=== PATIENT | male | born 1955 | race Caucasian/White ===

== ENCOUNTER 2016-08-03 11:23 | Emergency (ER) | payer BC ==
[~2016-08-03] VITALS: Ht 180.3 cm; Wt 113.8 kg
[~2016-08-03 11:23] MED LIST: PREDNISONE20 MG PO; VENTOLIN HFA18 GM IH
[2016-08-03] MEDS ORDERED: LAMOTRIGINE150 MG PO (11:53)
[2016-08-03] MEDS ORDERED: AMOXICILLIN875 MG PO (11:54)
[2016-08-03] MEDS ORDERED: BREO ELLIPTA I1 EACH IH (11:55)
[2016-08-03 13:15] LABS: CHLORIDE 106 mEq/L (99-109); POTASSIUM 4.1 mEq/L (3.7-5.4); SODIUM 139 mEq/L (136-147)
[2016-08-03 13:17] LABS: GLUCOSE 98 mg/dL (70-99)
[2016-08-03 13:18] LABS: ANION GAP 9 MEQ/L (2-14)
[2016-08-03 13:19] LABS: TOTAL BILIRUBIN 0.3 mg/dL (0.0-1.0)
[2016-08-03 13:20] LABS: ALKALINE PHOSPHATASE 80 IU/L (3-129)
[2016-08-03 13:21] LABS: GFR ESTIMATE (CALCULATED) > 59 mL/min/
[2016-08-03 13:22] LABS: UREA NITROGEN (BUN) 13 mg/dL (9-23)
[2016-08-03 13:26] LABS: EOSINOPHIL (%) 0 % (0-5); HEMATOCRIT 48.5 % (38.0-50.0); IMMATURE GRANULOCYTE (%) 0.2 % (0.0-0.7); INSTRUMENT ABS NEUTROPHIL CT 2.9 K/uL; LYMPHOCYTE COUNT 0.7 K/uL (1.0-2.8); MCH 29.4 PG (29.0-34.0); MCHC 32.6 G/DL (30.0-36.0); MCV 90.3 FL (86-99); MONOCYTE (%) 15.3 % (3-12); MONOCYTE COUNT 0.6 K/uL (0-0.8); NEUTROPHIL (%) 68.5 % (45-76); NEUTROPHIL COUNT 2.9 K/uL (1.8-6.4); PLATELET COUNT 183 K/uL (156-360); RBC DIS.WIDTH-CV 13.7 % (11.8-14.6); RBC DIS.WIDTH-SD 46.1 % (39-53); RED BLOOD COUNT 5.37 M/uL (4.00-5.50); WHITE BLOOD COUNT 4.2 K/uL (4.1-10.2)
[2016-08-03 13:38] LABS: TROP-I INTERPRETATION NEGATIVE; TROPONIN-I < 0.01 ng/mL (0.0-0.30)
[2016-08-03 16:03] LABS: D-DIMER ELISA 0.32 mg/L FEU (< 0.57)
[2016-08-03 16:14] LABS: TROP-I INTERPRETATION NEGATIVE; TROPONIN-I < 0.01 ng/mL (0.0-0.30)
[2016-08-03 16:42] VITALS: BP 128/84
== END 2016-08-03 16:43 | disposition home or self-care (01) ==
LOC: EME 11:23
PROVIDERS: Emergency Medicine
DX: R55 Syncope and collapse (principal); R56.9 Unspecified convulsions; Z87.891 Personal history of nicotine dependence
CPT/HCPCS: 70496; 70498; 71020; 80053; 84484; 85025; 85379; 93005; 99281; 99285; J7030